=== PATIENT | female | born 1985 | race African-American/Black ===

== ENCOUNTER 2018-09-13 10:01 | Emergency (ER) | payer OTHER ==
[~2018-09-13] VITALS: Ht 162.6 cm; Wt 72.4 kg
--- NOTE | 2018-09-13 10:33 | NUR ---
MAINTENANCE MECHANIC ENGINE: PT TO ROOM FROM ROBERT LENTZ
[2018-09-13 11:01] LABS: CULTURE INDICATED? YES; MICROSCOPIC INDICATED
--- NOTE | 2018-09-13 11:02 | NUR ---
Assumed care of pt. Report from Chey VILLARREAL. Pt NAD at this time.
--- NOTE | 2018-09-13 11:56 | NUR ---
[place] RN:VAGINAL EXAM ASSISTED WITH JONATAN FUENTES
[2018-09-13 11:57] LABS: BASOPHILS # (AUTO) 0.04 x10^3/uL (0-0.1); BASOPHILS % (AUTO) 1 % (0-1); EOSINOPHILS # (AUTO) 0.13 x10^3/uL (0-0.4); EOSINOPHILS % (AUTO) 2 % (1-7); LYMPHOCYTES # (AUTO) 2.86 x10^3/uL (1-3.4); LYMPHOCYTES % (AUTO) 36 % (22-44); MD NO; MEAN CORPUSCULAR HGB CONC 33.9 g/dL (32.4-35.8); MEAN CORPUSCULAR VOLUME 94.4 fL (80-100); MEAN PLATELET VOLUME 8.4 fL (7.4-10.4); MONOCYTES # (AUTO) 0.26 x10^3/uL (0.2-0.8); MONOCYTES % (AUTO) 3 % (2-9); NEUTROPHILS # (AUTO) 4.73 x10^3/uL (1.8-6.8); NEUTROPHILS % (AUTO) 59 % (42-75); PLATELET COUNT 291 x10^3/uL (130-400); RED BLOOD COUNT 4.47 x10^6/uL (3.82-5.3); RED CELL DISTRIBUTION WIDTH 14.1 % (9.6-15.2)
[2018-09-13] MEDS ORDERED: CEFTRIAXONE 250 MG IM ONE (12:00)
[2018-09-13] MEDS ORDERED: AZITHROMYCIN 250 MG TABLET PO ONE (12:00)
[2018-09-13 12:06] LABS: ALBUMIN 3.7 g/dL (3.4-5.0); ANION GAP 7 mmol/L (5-15); CALCIUM 8.4 mg/dL (8.5-10.1); CHLORIDE 108 mmol/L (98-107)
[2018-09-13] MEDS ORDERED: CEFTRIAXONE 250 MG ONE (12:09)
[2018-09-13] MEDS ORDERED: AZITHROMYCIN 500 MG TABLET ONE (12:09)
[2018-09-13] MEDS ORDERED: LIDOCAINE-MPF 1%, 2ML ONE (12:10)
[2018-09-13 12:12] LABS: ALANINE AMINOTRANSFERASE 25 U/L (12-78); ALKALINE PHOSPHATASE 96 U/L (45-117); BILIRUBIN,TOTAL 0.8 mg/dL (0.2-1.0); CREATININE 0.76 mg/dL (0.55-1.02); TOTAL PROTEIN 7.9 g/dL (6.4-8.2)
[2018-09-13 12:42] LABS: CLUE CELLS NONE SEEN (NONE SEEN); WET PREP WBCS FEW (FEW)
[2018-09-13 13:28] VITALS: BP 133/83
== END 2018-09-13 13:30 | disposition home or self-care (01) ==
LOC: ED 10:48
DX: N30.00 Acute cystitis without hematuria (principal); N89.8 Other specified noninflammatory disorders of vagina
CPT/HCPCS: 36415; 76830; 80053; 81001; 84703; 85025; 87086; 87210; 87491; 87591; 87808; 96372; 99284; J0696

== ENCOUNTER 2019-01-19 05:41 | Emergency (ER) | payer OTHER ==
[~2019-01-19] VITALS: Ht 162.6 cm; Wt 75.7 kg
--- NOTE | 2019-01-19 05:46 | NUR ---
L&D CALLED AND AWARE OF THIS PT.
--- NOTE | 2019-01-19 05:52 | NUR ---
pt up to rr with steady gait
[2019-01-19] MEDS ORDERED: PREN1TAB60 PO (05:56)
[2019-01-19] MEDS ORDERED: ACETAMINOPHEN 325 MG TABLET ONE (06:05)
[2019-01-19 06:11] VITALS: BP 111/61
--- NOTE | 2019-01-19 06:12 | NUR ---
PT MEDICATED PER MAR, AWAITING ULTRASOUND
[2019-01-19] MEDS ORDERED: ACETAMINOPHEN 325 MG TABLET PO ONE (06:30)
--- NOTE | 2019-01-19 06:49 | NUR ---
report given to annie de la cruz
== END 2019-01-19 08:09 | disposition home or self-care (01) ==
LOC: ED 06:46
DX: O26.891 Other specified pregnancy related conditions, first trimester (principal); Z3A.12 12 weeks gestation of pregnancy; S39.91XA Unspecified injury of abdomen, initial encounter; S30.1XXA Contusion of abdominal wall, initial encounter; W01.0XXA Fall on same level from slipping, tripping and stumbling without subsequent striking against object, initial encounter; Y93.89 Activity, other specified; Y92.69 Other specified industrial and construction area as the place of occurrence of the external cause; Y99.0 Civilian activity done for income or pay
CPT/HCPCS: 76801; 99284

== ENCOUNTER 2020-12-17 06:38 | Emergency (ER) | payer OTHER ==
[~2020-12-17] VITALS: Ht 165.1 cm; Wt 89.1 kg
[~2020-12-17 06:38] MED LIST: PREN1TAB60 PO
--- NOTE | 2020-12-17 06:55 | NUR ---
PT C/O HEADACHE TO THE RIGHT SIDE OF THE HEAD TOWARDS THE CROWN WITH HER RIGHT SIDE VISION SENSITIVE TO LIGHT SINCE SUNDAY. PT DESCRIBES PAIN "BURNING" IN NATURE. PAIN 10/10.
[2020-12-17] MEDS ORDERED: SODIUM CHLORIDE 0.9% 1,000ML IVBOLUS ONE (07:00)
[2020-12-17] MEDS ORDERED: DIPHENHYDRAMINE 50 MG/ML, 1ML IVPush ONE (07:00)
[2020-12-17] MEDS ORDERED: METOCLOPRAMIDE 5 MG/ML, 2ML IVPush ONE (07:00)
[2020-12-17] MEDS ORDERED: METOCLOPRAMIDE 5 MG/ML, 2ML ONE (07:19)
[2020-12-17] MEDS ORDERED: DIPHENHYDRAMINE 50 MG/ML, 1ML ONE (07:19)
--- NOTE | 2020-12-17 07:24 | NUR ---
PT OFF THE FLOOR TO CT
--- NOTE | 2020-12-17 07:30 | NUR ---
PT BACK FROM CT
[2020-12-17] MEDS ORDERED: DEXAMETHASONE 4 MG/ML, 1ML PO ONE (08:00)
[2020-12-17] MEDS ORDERED: KETOROLAC 30 MG/1 ML IVPush ONE (08:00)
[2020-12-17] MEDS ORDERED: KETOROLAC 30 MG/1 ML ONE (08:29)
[2020-12-17] MEDS ORDERED: DEXAMETHASONE 4 MG/ML, 5ML ONE (08:29)
[2020-12-17 09:00] VITALS: BP 131/80
--- NOTE | 2020-12-17 09:11 | NUR ---
PT REC'VD DISCHARGE INSTRUCTIONS AND EDUCATION. PT AND SPOUSE HAD NO FURTHER QUESTIONS. PT AMBULATED TO DC AREA, STEADY GAIT.
== END 2020-12-17 09:14 | disposition home or self-care (01) ==
LOC: ED 09:08
DX: R51.9 Headache, unspecified (principal); F17.200 Nicotine dependence, unspecified, uncomplicated
CPT/HCPCS: 70450; 96361; 96374; 96375; 99284; J1100; J1200; J1885; J2765; J7030

== ENCOUNTER → 2021-03-14 | Outpatient (CLI) | payer OTHER ==
[2021-03-14 10:37] LABS: BASOPHILS % (AUTO) 1 % (0-1); EOSINOPHILS % (AUTO) 2 % (1-7); LYMPHOCYTES % (AUTO) 31 % (22-44); MEAN CORPUSCULAR HEMOGLOBIN 32.3 pg (27.0-34.8); MEAN CORPUSCULAR HGB CONC 34.7 g/dL (32.4-35.8); MEAN PLATELET VOLUME 8.1 fL (7.4-10.4); MONOCYTES % (AUTO) 7 % (2-9); NEUTROPHILS % (AUTO) 60 % (42-75); PLATELET COUNT 244 x10^3/uL (130-400); RED CELL DISTRIBUTION WIDTH 12.8 % (9.6-15.2)
[2021-03-14 10:49] LABS: MICROSCOPIC INDICATED
== END | disposition home or self-care (01) ==
LOC: LAB 09:41
PROVIDERS: ATTEND Obstetrics & Gynecology
DX: Z34.80 Encounter for supervision of other normal pregnancy, unspecified trimester (principal); Z3A.00 Weeks of gestation of pregnancy not specified
CPT/HCPCS: 36415; 81001; 82947; 83020; 85025; 86592; 86762; 86803; 86850; 86900; 87086; 87340; 87806; G0475